=== PATIENT | female | born 1960 ===

== ENCOUNTER 2016-07-04 15:24 | Outpatient (RCR) | payer BC ==
--- NOTE | 2016-07-05 02:27 | Consultation ---
DATE OF CONSULTATION: 07/04/2016 HYPERBARIC OXYGEN CONSULTATION REASON FOR EVALUATION: Postoperative hyperbaric oxygen therapy. HISTORY OF PRESENT ILLNESS: This is a 55-year-old female, who underwent bilateral mastectomy prophylactically for positive BRCA. The patient is here for hyperbaric oxygen therapy and I was asked to evaluate and recommend further. The patient is otherwise stable. She has had hyperbaric oxygen therapy in the past. She has no significant history of lung disease or sinus disease. The patient is otherwise stable and has no significant distress. PAST MEDICAL HISTORY: Notable for depression. MEDICATIONS: Celexa. ALLERGIES: None. SOCIAL HISTORY: The patient is independent. Nonsmoker and nondrinker. PHYSICAL EXAMINATION: GENERAL: The patient is a well-developed female, comfortable. VITAL SIGNS: Stable. The patient is afebrile. HEENT: Oropharynx and nasal passages are clear. LUNGS: Otherwise clear. CARDIAC: Otherwise normal. IMPRESSION: Status post bilateral mastectomy. Otherwise, medically healthy. RECOMMENDATION: Proceed with hyperbaric oxygen therapy at 90-minute intervals, two atmospheres with ongoing wound care. Rafal Dumont M.D. DR: AMALIA JOB#: [id number] CC: ; [facility]ITALRafal Dumont M.D.
== END 2016-07-30 | disposition home or self-care (01) ==
LOC: WCC 15:24
DX: T86.821 Skin graft (allograft) (autograft) failure (principal); Z90.13 Acquired absence of bilateral breasts and nipples

== ENCOUNTER 2016-07-04 16:00 | Outpatient (RCR) | payer SELFPAY | END 2016-07-30 | disposition home or self-care (01) | LOC: WCC 16:00 | DX: T86.821 Skin graft (allograft) (autograft) failure (principal); Z90.13 Acquired absence of bilateral breasts and nipples ==